=== PATIENT | female | born 1960 ===

== ENCOUNTER 2017-05-27 12:08 | Emergency (ER) | payer OTHER, SELFPAY ==
[2017-05-27 12:13] VITALS: BMI 22.7
[2017-05-27 12:24] VITALS: BP 145/72; PULSE 64; RESP 18; TEMP 97.8; O2SAT 100
[2017-05-27] MEDS ORDERED: Sodium Chloride 0.9% 1,000 ML IV STA (12:41)
[2017-05-27] MEDS ORDERED: DiphenhydrAMINE 50 mg/ml Inj IVP STA (12:41)
--- NOTE | 2017-05-27 12:49 | C.PDOC ---
History Of Present Illness 57 y/o F p/w headache x 5 hours, was present when patient awoke from sleep since the night prior, associated with L facial numbness. Headache is pounding in character, L sided only. Patient states she has had similar headaches in the past and they are usually associated with L facial numbness although the numbness is somewhat stronger today. She has never followed up with neurology. She denies fever, stiff neck, trauma, motor weakness, facial droop. Time Seen by Provider: 05/27/17 12:32 Chief Complaint (Nursing): Weakness/Neurological Deficit Past Medical History Vital Signs: Last Vital Signs Temp 97.8 F 05/27/17 12:19 Pulse 64 05/27/17 12:19 Resp 18 05/27/17 12:19 BP 145/72 05/27/17 12:19 Pulse Ox 100 05/27/17 14:25 - Medical History PMH: Hyperlipidemia Family History: States: No Known Family Hx - Social History Hx Alcohol Use: No Hx Substance Use: No - Immunization History Hx Tetanus Toxoid Vaccination: Yes Hx Influenza Vaccination: No Hx Pneumococcal Vaccination: No Review Of Systems Except As Marked, All Systems Reviewed And Found Negative. Constitutional: Negative for: Fever Cardiovascular: Negative for: Chest Pain Physical Exam - Physical Exam Additional Physical Exam Comments: Gen: NAD Head: NC/AT Eyes: PERRL. EOMI. ENT: MMM Neck: No rigidity or midline tenderness Chest: No tenderness CV: Regular rate Lungs: CTA b/l Abd: Soft, NT Back: No CVA tenderness Skin: No rash Extremities: No swelling Neuro: Alert. Oriented x 3. CN II to XII intact. Motor 5/5 x 4. No facial droop. FTN normal. Gait steady. Sensation to light touch intact in bilateral face, subjectively decreased on L. ED Course And Treatment O2 Sat by Pulse Oximetry: 100 Medical Decision Making Medical Decision Making: EKG NSR 60 bpm, no ST/T wave changes. Patient with similar headaches in the past with associated facial numbness. Differential includes likely migraine headaches. Will treat symptomatically and check for improvement. FINDINGS: HEMORRHAGE: No intracranial hemorrhage. BRAIN: No mass effect or edema. No atrophy or chronic microvascular ischemic changes. VENTRICLES: Unremarkable. No hydrocephalus. CALVARIUM: Unremarkable. PARANASAL SINUSES: Unremarkable as visualized. No significant inflammatory changes. MASTOID AIR CELLS: Unremarkable as visualized. No inflammatory changes. OTHER FINDINGS: None. IMPRESSION: Normal CT of the Head. No intracranial mass, hemorrhage or evidence of acute infarct. Patient states headache gone. Will discharge, instructed to follow up with neurology, instructed to return to ED for worsening pain, fever, stiff neck, or any motor weakness. Disposition - Disposition Referrals: [facility] at [facility] [Outside] Disposition: HOME/ ROUTINE Disposition Time: 14:43 Condition: STABLE Prescriptions: Acetaminophen [Tylenol 325mg tab] 2 tab PO Q4H #30 tab Ibuprofen [Motrin] 1 tab PO Q6 #30 tab Polyethylene Glycol 3350 [Miralax] 17 gm PO DAILY #238 gm Instructions: Migraine Headache (DC) Forms: [facility] ([place]an), Gen Discharge Inst Angolan - Clinical Impression Clinical Impression: Headache
[2017-05-27] MEDS ORDERED: DiphenhydrAMINE 50 mg/ml Inj ONE (13:08)
[2017-05-27] MEDS ORDERED: Simethicone 80 mg Chewtab PO STA (13:42)
[2017-05-27] MEDS ORDERED: Alum-Mag Hydrox-Simethicone Susp (30 mL) PO STA (13:42)
--- NOTE | 2017-05-27 14:24 | CT ---
PROCEDURE: CT HEAD WITHOUT CONTRAST. HISTORY: headache COMPARISON: None available. TECHNIQUE: Axial computed tomography images were obtained through the head/brain without intravenous contrast. Radiation dose: Total exam DLP = 794.52 mGy-cm. This CT exam was performed using one or more of the following dose reduction techniques: Automated exposure control, adjustment of the mA and/or kV according to patient size, and/or use of iterative reconstruction technique. FINDINGS: HEMORRHAGE: No intracranial hemorrhage. BRAIN: No mass effect or edema. No atrophy or chronic microvascular ischemic changes. VENTRICLES: Unremarkable. No hydrocephalus. CALVARIUM: Unremarkable. PARANASAL SINUSES: Unremarkable as visualized. No significant inflammatory changes. MASTOID AIR CELLS: Unremarkable as visualized. No inflammatory changes. OTHER FINDINGS: None. IMPRESSION: Normal CT of the Head. No intracranial mass, hemorrhage or evidence of acute infarct.
[2017-05-27] MEDS ORDERED: Aluminum Hydroxide/Magnesium Hydroxide Susp (30 mL) ONE (14:41)
--- NOTE | 2017-05-27 23:41 | CARD ---
APPROVED REPORT EKG Measurement Heart [id number] VT 110P66 [id number] <Conclusion> Sinus rhythm with short VT Otherwise normal ECG
== END 2017-05-27 15:15 | disposition home or self-care (01) ==
LOC: C.ER 12:08
DX: R51 Headache (principal)
CPT/HCPCS: 70450; 82948; 93005; 96361; 96374; 96375; 99285; J1200; J2765; J7040

== ENCOUNTER 2018-03-04 09:08 | Outpatient (CLI) | payer OTHER | END 2018-03-04 09:09 | disposition home or self-care (01) | LOC: C.DEXAIC 09:08 | DX: Z13.820 Encounter for screening for osteoporosis (principal); M54.12 Radiculopathy, cervical region ==